=== PATIENT | female | born 2000 ===

== ENCOUNTER 2021-10-18 20:35 | Emergency (ER) | payer OTHER ==
[~2021-10-18] VITALS: Ht 170 cm; Wt 72.0 kg
[2021-10-18 20:57] LABS: BASOPHILS % (AUTO) 1 % (0-10); EOSINOPHILS # (AUTO) 0.1 10^3/uL (0.0-0.3); EOSINOPHILS % (AUTO) 2 % (0-10); HEMATOCRIT 46 % (35-52); HEMOGLOBIN 15.3 g/dL (11.5-16.0); LYMPHOCYTES # (AUTO) 2.7 10^3/uL (1.0-4.0); LYMPHOCYTES % (AUTO) 44 % (12-44); MEAN CORPUSCULAR HEMOGLOBIN 29 pg (25-34); MEAN CORPUSCULAR HGB CONC 34 g/dL (32-36); MEAN CORPUSCULAR VOLUME 88 fL (80-99); MEAN PLATELET VOLUME 8.6 fL (9.0-12.2); MONOCYTES # (AUTO) 0.6 10^3/uL (0.0-1.0); MONOCYTES % (AUTO) 10 % (0-12); NEUTROPHILS # (AUTO) 2.7 10^3/uL (1.8-7.8); NEUTROPHILS % (AUTO) 44 % (42-75); PLATELET COUNT 357 10^3/uL (130-400); WHITE BLOOD COUNT 6.2 10^3/uL (4.3-11.0)
[2021-10-18] MEDS ORDERED: ONDANSETRON 4 MG/2 ML (SDV) Z0FRAN IVP ONE (21:00)
[2021-10-18] MEDS ORDERED: PANTOPRAZOLE 40 MG (PROTONIX) VIAL IV ONE (21:00)
[2021-10-18] MEDS ORDERED: LACTATED RINGERS 1,000 ML IV ONE (21:00)
[2021-10-18 21:07] LABS: ALBUMIN 4.6 GM/DL (3.2-4.5); CHLORIDE 105 MMOL/L (98-107); POTASSIUM 3.1 MMOL/L (3.6-5.0); SODIUM 141 MMOL/L (135-145)
[2021-10-18 21:09] LABS: CALCIUM 9.8 MG/DL (8.5-10.1)
[2021-10-18 21:10] LABS: GLUCOSE 105 MG/DL (70-105); TOTAL PROTEIN 8.4 GM/DL (6.4-8.2)
[2021-10-18 21:11] LABS: CARBON DIOXIDE 23 MMOL/L (21-32)
[2021-10-18 21:12] LABS: BILIRUBIN,TOTAL 0.4 MG/DL (0.1-1.0)
[2021-10-18 21:13] LABS: ALKALINE PHOSPHATASE 119 U/L (40-136); CREATININE SERUM 0.81 MG/DL (0.60-1.30); GFR ESTIMATED 107
[2021-10-18 21:14] LABS: BUN/CREATININE RATIO 14
[2021-10-18 21:16] LABS: ALANINE AMINOTRANSFERASE 53 U/L (0-55); MAGNESIUM 1.8 MG/DL (1.6-2.4)
[2021-10-18 21:17] LABS: LIPASE 49 U/L (8-78)
--- NOTE | 2021-10-18 21:22 | ED GI ---
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 She began having diarrhea early this morning. Vomiting ensued later in the day. She denies any fever. She has had headache for the past couple of days. She denies as she is on Depo-Provera. She has some mild epigastric tenderness but otherwise denies abdominal pain. She is actively heaving on arrival. Allergies and Home Medications Allergies Coded Allergies: NSAIDS (Non-Steroidal Anti-Inflamma (Verified Allergy, Unknown, Hives, 10/18/21) Patient Home Medication List Home Medication List Reviewed: Yes Ondansetron (Ondansetron Odt) 4 Mg Tab.rapdis, 4 MG SL Q4H PRN for NAUSEA/VOMITING Prescribed by: JORDANA MEDRANO on 10/18/212231 Review of Systems Review of Systems Constitutional: no symptoms reported EENTM: No Symptoms Reported Respiratory: No Symptoms Reported Cardiovascular: No Symptoms Reported Gastrointestinal: See HPI Genitourinary: No Symptoms Reported Musculoskeletal: no symptoms reported Skin: no symptoms reported Psychiatric/Neurological: See HPI Endocrine: No Symptoms Reported Hematologic/Lymphatic: No Symptoms Reported Past Wjgawjc-Wpijww-Uexvdu Hx Patient Social History Tobacco Use?: No Use of E-Cig and/or Vaping dev: No Substance use?: No Alcohol Use?: No Pt feels they are or have been: No Past Medical History Surgery/Hospitalization HX: Gallbladder; Tonsils; Ankle Surgeries: Yes Gallbladder, Orthopedic (Ankle), Tonsillectomy Respiratory: No Cardiac: No Neurological: No : No (On Depo-Provera with unknown LMP) Reproductive Disorders: No Genitourinary: No Gastrointestinal: No Musculoskeletal: No Endocrine: No HEENT: No Cancer: No Psychosocial: No Integumentary: No Physical Exam Vital Signs Vital Signs - First Documented 10/18/21 20:45 Temp 36.6 Pulse 80 Resp 18 B/P (MAP) 142/102 (115) Pulse Ox 95 O2 Delivery Room Air Capillary Refill : Less Than 3 Seconds Height/Weight/BMI Height: '" Weight: lbs. oz. 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, no motor/sensory deficits, alert, normal mood/affect, oriented x 3 Skin: normal color, warm/dry Progress/Results/Core Measures Results/Orders Lab Results Laboratory Tests Test 10/18/21 20:45 10/18/21 21:50 Range/Units White Blood Count 6.2 4.3-11.0 10^3/uL Red Blood Count 5.21 H 3.80-5.11 10^6/uL Hemoglobin 15.3 11.5-16.0 g/dL Hematocrit 46 35-52 % Mean Corpuscular Volume 88 80-99 fL Mean Corpuscular Hemoglobin 29 25-34 pg Mean Corpuscular Hemoglobin Concent 34 32-36 g/dL Red Cell Distribution Width 11.4 10.0-14.5 % Platelet Count 357 130-400 10^3/uL Mean Platelet Volume 8.6 L 9.0-12.2 fL Immature Granulocyte % (Auto) 1 % Neutrophils (%) (Auto) 44 42-75 % Lymphocytes (%) (Auto) 44 12-44 % Monocytes (%) (Auto) 10 0-12 % Eosinophils (%) (Auto) 2 0-10 % Basophils (%) (Auto) 1 0-10 % Neutrophils # (Auto) 2.7 1.8-7.8 10^3/uL Lymphocytes # (Auto) 2.7 1.0-4.0 10^3/uL Monocytes # (Auto) 0.6 0.0-1.0 10^3/uL Eosinophils # (Auto) 0.1 0.0-0.3 10^3/uL Basophils # (Auto) 0.0 0.0-0.1 10^3/uL Immature Granulocyte # (Auto) 0.0 0.0-0.1 10^3/uL Sodium Level 141 135-145 MMOL/L Potassium Level 3.1 L 3.6-5.0 MMOL/L Chloride Level 105 98-107 MMOL/L Carbon Dioxide Level 23 21-32 MMOL/L Anion Gap 13 5-14 MMOL/L Blood Urea Nitrogen 11 7-18 MG/DL Creatinine 0.81 0.60-1.30 MG/DL Estimat Glomerular Filtration Rate 107 BUN/Creatinine Ratio 14 Glucose Level 105 70-105 MG/DL Calcium Level 9.8 8.5-10.1 MG/DL Corrected Calcium 8.5-10.1 MG/DL Magnesium Level 1.8 1.6-2.4 MG/DL Total Bilirubin 0.4 0.1-1.0 MG/DL Aspartate Amino Transf (AST/SGOT) 45 H 5-34 U/L Alanine Aminotransferase (ALT/SGPT) 53 0-55 U/L Alkaline Phosphatase 119 40-136 U/L C-Reactive Protein High Sensitivity 4.24 H 0.00-0.50 MG/DL Total Protein 8.4 H 6.4-8.2 GM/DL Albumin 4.6 H 3.2-4.5 GM/DL Lipase 49 8-78 U/L Serum Test, Qualitative NEGATIVE NEGATIVE Urine Color YELLOW Urine Clarity CLEAR Urine pH 6.0 5-9 Urine Specific [place] >=1.030 1.016-1.022 Urine Protein 1+ H NEGATIVE Urine Glucose (UA) NEGATIVE NEGATIVE Urine Ketones NEGATIVE NEGATIVE Urine Nitrite NEGATIVE NEGATIVE Urine Bilirubin NEGATIVE NEGATIVE Urine Urobilinogen 1.0 < = 1.0 MG/DL Urine Leukocyte Esterase NEGATIVE NEGATIVE Urine RBC (Auto) NEGATIVE NEGATIVE Urine RBC RARE /HPF Urine WBC NONE /HPF Urine Squamous Epithelial Cells 0-2 /HPF Urine Crystals NONE /LPF Urine Bacteria TRACE /HPF Urine Casts NONE /LPF Urine Mucus MODERATE H /LPF Urine Culture Indicated NO My Orders Orders - JORDANA CHAVEZ MD Pantoprazole Injection (Protonix Injecti (10/18/21 21:00) Ondansetron Injection (Zofran Injectio (10/18/21 21:00) Ed Iv/Invasive Line Start (10/18/21 20:48) Lactated Ringers (Lr 1000 Ml Iv Solution (10/18/21 21:00) Cbc With Automated Diff (10/18/21 20:49) Comprehensive Metabolic Panel (10/18/21 20:49) Hs C Reactive Protein (10/18/21 20:49) Hcg,Qualitative Serum (10/18/21 20:49) Lipase (10/18/21 20:49) Magnesium (10/18/21 20:49) Ua Culture If Indicated (10/18/21 20:49) Ns Iv 1000 Ml (Sodium Chloride 0.9%) (10/18/21 21:30) Potassium Cl 10meq/50ml Ivpb (Kcl 10 Meq (10/18/21 21:30) Medications Given in ED Current Medications Medications Dose Ordered Sig/Frank Route Start Time Stop Time Status Last Admin Dose Admin Lactated Ringer's 1,000 ml @ 0 mls/hr Q0M ONCE IV 10/18/21 21:00 10/18/21 21:01 DC 10/18/21 20:58 0 MLS/HR Ondansetron HCl 8 mg ONCE ONCE IVP 10/18/21 21:00 10/18/21 21:01 DC 10/18/21 20:57 8 MG Pantoprazole 40 mg ONCE ONCE IV 10/18/21 21:00 10/18/21 21:01 DC 10/18/21 20:57 40 MG Potassium Chloride 50 ml @ 50 mls/hr ONCE ONCE IV 10/18/21 21:30 10/18/21 22:29 DC 10/18/21 21:54 50 MLS/HR Vital Signs/I&O 10/18/21 10/18/21 20:45 21:08 Temp 36.6 Pulse 80 Resp 18 B/P (MAP) 142/102 (115) 134/72 Pulse Ox 95 O2 Delivery Room Air Blood Pressure Mean: 92 Progress Progress Note #1: Time: 21:22 Progress Note Patient was interviewed and examined immediately upon arrival. Symptoms are being treated with Protonix and Zofran. IV fluids are being infused. Labs are pending. Progress Note #2: Time: 22:39 Progress Note Patient was much improved after treatment. Nausea and vomiting resolved. She had some mild residual epigastric discomfort. She was resting comfortably at the time of discharge. She was found to have hypokalemia. In addition to the potassium and LR, she was given a 10 M EQ bag of potassium. Normal saline was run along with the potassium to prevent burning. Discharge instructions were reviewed with patient. See discharge instructions for further discussion. Departure Impression Primary Impression: Nausea vomiting and diarrhea Additional Impressions: Hypokalemia Epigastric pain Disposition: 01 HOME, SELF-CARE Condition: Improved Departure-Patient Inst. Decision time for Depature: 22:29 Patient Instructions: Abdominal Pain, Adult ED, Viral Gastroenteritis Add. Discharge Instructions: Adhere to a noncarbonated clear liquid diet for the remainder of today. If you are feeling improved tomorrow, you may gradually advance your diet with small quantities of bland food as tolerated. Start with bland foods such as white rice, Jell-O, potatoes, crackers, toast, bananas, etc. Use the Zofran (ondansetron) as prescribed for nausea and vomiting. Your upper abdominal pain may be caused by gastritis (inflammation of the lining of the stomach) or esophagitis (inflammation of the lining of the esophagus). You may use an [id number] antacid medication such as Pepcid (famotidine) or omeprazole for the next 1 to 2 weeks to reduce this discomfort and encourage recovery. Return to care if you have worsening symptoms despite following these instructions. Call with questions or concerns. All discharge instructions reviewed with patient and/or family. Voiced under standing. Scripts Ondansetron (Ondansetron Odt) 4 Mg Tab.rapdis 4 MG SL Q4H PRN for NAUSEA/VOMITING, #10 TAB Prov: JORDANA CHAVEZ MD 10/18/21 JORDANA CHAVEZ MD Oct 18, 2021 21:22
[2021-10-18] MEDS ORDERED: NS IV 1000 ML 1,000 ML IV SCH (21:30)
[2021-10-18] MEDS ORDERED: POTASSIUM CL 10MEQ/50ML IVPB 50 ML IV ONE (21:30)
[2021-10-18 22:01] LABS: BILIRUBIN,URINE NEGATIVE (NEGATIVE); CLARITY,URINE CLEAR; COLOR,URINE YELLOW; GLUCOSE, URINE (UA) NEGATIVE (NEGATIVE); KETONES,URINE NEGATIVE (NEGATIVE); LEUKOCYTE ESTERASE ,URINE NEGATIVE (NEGATIVE); NITRITE,URINE NEGATIVE (NEGATIVE); PROTEIN,URINE 1+ (NEGATIVE)
[2021-10-18 22:09] LABS: BACTERIA,URINE TRACE /HPF; RBC,URINE RARE /HPF; SQUAMOUS EPITHELIAL CELL,UR 0-2 /HPF
[2021-10-18] MEDS ORDERED: ONDA4TAB11 SL (22:32)
[2021-10-18 22:42] VITALS: BP 129/79
== END 2021-10-18 22:44 | disposition home or self-care (01) ==
LOC: ER 20:38
DX: R11.2 Nausea with vomiting, unspecified (principal); R19.7 Diarrhea, unspecified; E87.6 Hypokalemia; Z32.02 Encounter for pregnancy test, result negative
CPT/HCPCS: 36415; 80053; 81000; 83690; 83735; 84703; 85025; 86141